=== PATIENT | male | born 1960 | race Caucasian/White ===

== ENCOUNTER 2017-01-21 16:18 | Emergency (ER) | payer BC ==
[~2017-01-21 16:18] MED LIST: ASAB PO; ASABAYER PO; C5; CLARIT10 PO; FLEX PO; GLUCOPHAGE1000 MG PO; LANTUSCART SC; LIPITOR20 PO; LOP50 PO; PCET PO; PLAVIX PO; PROTONIX PO; TOPXL100 PO; ZESTRIL20 MG PO
== END 2017-01-21 19:06 | disposition home or self-care (01) ==
LOC: ER 16:18
DX: S20.229A Contusion of unspecified back wall of thorax, initial encounter (principal); I10 Essential (primary) hypertension; Z91.041 Radiographic dye allergy status; Z88.0 Allergy status to penicillin; Z88.1 Allergy status to other antibiotic agents; Z88.8 Allergy status to other drugs, medicaments and biological substances; Z79.84 Long term (current) use of oral hypoglycemic drugs; Z79.4 Long term (current) use of insulin; Z79.82 Long term (current) use of aspirin; W11.XXXA Fall on and from ladder, initial encounter
CPT/HCPCS: 72072; 72100; 72125; 73552-LT; 73560-LT; 82962; 96374; 96376; 99284